=== PATIENT | female | born 2005 | race Caucasian/White ===

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

== ENCOUNTER 2023-05-15 19:21 | Outpatient (CLI) | payer OTHER | END 2023-05-15 19:22 | disposition EMS.NT | LOC: EMS 19:21 | DX: R55 Syncope and collapse (principal); S00.83XA Contusion of other part of head, initial encounter; S00.81XA Abrasion of other part of head, initial encounter; S80.211A Abrasion, right knee, initial encounter; W18.39XA Other fall on same level, initial encounter; Y92.008 Other place in unspecified non-institutional (private) residence as the place of occurrence of the external cause ==